=== PATIENT | female | born 1970 | race Caucasian/White ===

== ENCOUNTER 2016-12-27 17:08 | Emergency (ER) | payer OTHER ==
[~2016-12-27] VITALS: Ht 157.5 cm; Wt 59.0 kg
[~2016-12-27 17:08] MED LIST: PRED20TA PO; PROAIR HFA8.5 GM INH
[2016-12-27 17:41] VITALS: BP 127/63
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
[2016-12-27] MEDS ORDERED: IBUPROFEN 800 MG TABLET. PO ONE (18:30)
[2016-12-27] MEDS ORDERED: CYCLOBENZAPRINE 10 MG TABLET. PO ONE (18:30)
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
[2016-12-27] MEDS ORDERED: CYCL10TA2 PO (18:42)
== END 2016-12-27 18:55 | disposition home or self-care (01) ==
LOC: ER 17:08
DX: M54.5 Low back pain (principal); M54.6 Pain in thoracic spine; M54.2 Cervicalgia; V43.53XA Car driver injured in collision with pick-up truck in traffic accident, initial encounter; Y93.I9 Activity, other involving external motion; Y92.410 Unspecified street and highway as the place of occurrence of the external cause; Y99.8 Other external cause status
CPT/HCPCS: 70450; 72128; 99284-25

== ENCOUNTER 2017-02-18 19:40 | Emergency (ER) | payer SELFPAY ==
[~2017-02-18] VITALS: Ht 160 cm; Wt 61.2 kg
[~2017-02-18 19:40] MED LIST changes: +CYCL10TA2 PO
[2017-02-18 19:54] VITALS: BP 137/84
[2017-02-18] MEDS ORDERED: PRED20TA PO (20:11)
[2017-02-18] MEDS ORDERED: SULF1TAB24 PO (20:11)
--- NOTE | 2017-02-18 20:12 | PHYS DOC ---
Past Medical History Past Medical History: No Pertinent History Past Surgical History: Alcohol Use: None Drug Use: None Adult General Chief Complaint Chief Complaint: INSECT BITE [facility] HPI Patient is a 46 year old presents to emergency department with an area on her right lower back that is pink in color. It appears that she was bitten by some type of event intact. There is no drainage or discharge coming from the site. The area does not feel extremely warm. She believes that she was bit by a spider. Her tetanus immunization is up-to-date. Patient denies any fever, chills or any nausea vomiting. She states the area states salgado and itches. Review of Systems Review of Systems Constitutional: Denies fever or chills [] Eyes: Denies change in visual acuity, redness, or eye pain [] HENT: Denies nasal congestion or sore throat [] Respiratory: Denies cough or shortness of breath [] Cardiovascular: No additional information not addressed in HPI [] GI: Denies abdominal pain, nausea, vomiting, bloody stools or diarrhea [] : Denies dysuria or hematuria [] Musculoskeletal: Denies back pain or joint pain [] Integument: Denies rash or skin lesions. C/o area on right lower back that is irritated Neurologic: Denies headache, focal weakness or sensory changes [] Allergies Allergies Allergies Coded Allergies Type Severity Reaction Last Updated Verified No Known Drug Allergies 10/30/13 No Physical Exam Physical Exam Constitutional: Well developed, well nourished, no acute distress, non-toxic appearance. [] HENT: Normocephalic, atraumatic, bilateral external ears normal, oropharynx moist, no oral exudates, nose normal. [] Eyes: PERRLA, EOMI, conjunctiva normal, no discharge. [] Neck: Normal range of motion, no tenderness, supple, no stridor. [] Cardiovascular: Patient pink warm and dry Lungs & Thorax: no respiratory distress noted Skin: Warm, dry, no erythema, no rash. Area to the right lower back appears to have signs of a orange that is slightly pink with the middle area that appears to be slightly darker. No drainage or discharge coming from the site. The area does not appear to be any warmer than the rest of her skin. Back: No tenderness Extremities: No tenderness, no cyanosis, no clubbing, ROM intact, no edema. [] Neurologic: Alert and oriented X 3, normal motor function, normal sensory function, no focal deficits noted. [] Psychologic: Affect normal, judgement normal, mood normal. [] Current Patient Data Vital Signs Vital Signs Date Time Temp Pulse Resp B/P Pulse Ox O2 Delivery O2 Flow Rate FiO2 02/18/17 19:54 97.9 76 18 99 Room Air 97.9 EKG EKG [] Radiology/Procedures Radiology/Procedures [] Course & Med Decision Making Course & Med Decision Making Pertinent Labs and Imaging studies reviewed. (See chart for details) She was recommended to use Benadryl to help with the itching and irritation. She 'll be provided with steroids to help with inflammation. Patient will also be provided with Bactrim for ear infection in which she was instructed to start in the next few days if the area becomes increasingly redness or if any drainage or discharge coming from the site. At this time I believe that the area is a reaction from the bite as opposed to a infection. Patient agrees with treatment regimen at this time. Patient will be discharged home with signs and symptoms to return back to emergency department. Patient agrees with discharge instructions treatment regimens and follow-up recommendations. [] Dragon Disclaimer Dragon Disclaimer This electronic medical record was generated, in whole or in part, using a voice recognition dictation system. Departure Departure Impression: Primary Impression: Insect bite Disposition: 01 HOME, SELF-CARE Condition: STABLE Referrals: NO PCP (PCP) Patient Instructions: Insect Bite, [id number] Additional Instructions: Keep the area clean and dry. Clean the site with soap and water and apply antibiotic ointment to the area twice a day. Keep the area cool as well this will help decrease the irritation. You may also use Benadryl to help with the itching and irritation this medication will cause drowsiness do not take any be alert and oriented. You will be provided with a prescription for prednisone to help with inflammation. He'll also be provided with a prescription for Bactrim in which she may start in the next 2 days if the area becomes increasingly reddened or if drainage starts coming from the area. Follow-up to primary care physician in the next 3-5 days. Return back to emergency department sign symptoms of become worse. Scripts Prednisone 20 Mg [id number] Mg PO DAILY #10 TAB Prov:CHARLES HIGHTOWER TELEVISION AGENT 02/18/17 Sulfamethoxazole/Trimethoprim (Bactrim Ds Tablet)1 Each Tablet1 Tab PO BID #20 TAB Prov:CHARLES HIGHTOWER APRN 02/18/17 CHARLES HIGHTOWER APRN February 18, 2017 20:12
== END 2017-02-18 20:15 | disposition home or self-care (01) ==
LOC: ER 19:40
DX: S30.860A Insect bite (nonvenomous) of lower back and pelvis, initial encounter (principal); W57.XXXA Bitten or stung by nonvenomous insect and other nonvenomous arthropods, initial encounter; Y93.89 Activity, other specified; Y92.89 Other specified places as the place of occurrence of the external cause; Y99.8 Other external cause status
CPT/HCPCS: 99283

== ENCOUNTER 2017-08-14 14:23 | Emergency (ER) | payer SELFPAY ==
[~2017-08-14] VITALS: Ht 165.1 cm; Wt 68.9 kg
[~2017-08-14 14:23] MED LIST changes: +SULF1TAB24 PO
[2017-08-14 14:48] VITALS: BP 123/75
[2017-08-14] MEDS ORDERED: NAPROXEN 500 MG TABLET PO STA (14:57)
[2017-08-14] MEDS ORDERED: CYCLOBENZAPRINE 10 MG TABLET. PO ONE (15:00)
[2017-08-14] MEDS ORDERED: HYDROcodone/APAP 5/325MG 1 TAB TABLET PO ONE (15:00)
[2017-08-14 15:14] LABS: BILIRUBIN,URINE NEGATIVE (NEG); GLUCOSE,URINE NEGATIVE (NEG); NITRITE,URINE POSITIVE (NEG); PROTEIN,URINE NEGATIVE (NEG-TRACE)
--- NOTE | 2017-08-14 15:32 | PHYS DOC ---
Past Medical History Past Medical History: No Pertinent History Past Surgical History: , Tubal ligation Alcohol Use: None Drug Use: None Adult General Chief Complaint Chief Complaint: BACK PAIN - NO INJURY HPI HPI Patient is a 46 year old female who presents with mild to moderate left flank pain that began yesterday. Patient states the pain is sharp and worse on movement. Patient denies any urgency frequency or dysuria. Denies any hematuria. Denies any injury. Review of Systems Review of Systems Constitutional: Denies fever or chills [] Eyes: Denies change in visual acuity, redness, or eye pain [] HENT: Denies nasal congestion or sore throat [] Respiratory: Denies cough or shortness of breath [] Cardiovascular: No additional information not addressed in HPI [] GI: Denies abdominal pain, nausea, vomiting, bloody stools or diarrhea [] :. Denies dysuria or hematuria [] Musculoskeletal: Left flank pain Integument: Denies rash or skin lesions [] Neurologic: Denies headache, focal weakness or sensory changes [] Endocrine: Denies polyuria or polydipsia [] Current Medications Current Medications Current Medications Medications (Trade) Dose Ordered Sig/Christiane Start Time Stop Time Status Last Admin Dose Admin Acetaminophen/ Hydrocodone Bitart (Lortab 5/325) 2 tab 1X ONCE 08/14/17 15:00 08/14/17 15:01 DC 08/14/17 15:11 2 TAB Cyclobenzaprine HCl (Flexeril) 10 mg 1X ONCE 08/14/17 15:00 08/14/17 15:01 DC 08/14/17 15:11 10 MG Naproxen (Naprosyn) 500 mg 1X STAT 08/14/17 14:57 08/14/17 15:01 DC 08/14/17 15:11 500 MG Allergies Allergies Allergies Coded Allergies Type Severity Reaction Last Updated Verified No Known Drug Allergies 10/30/13 No Physical Exam Physical Exam Constitutional: Well developed, well nourished, no acute distress, non-toxic appearance. [] HENT: Normocephalic, atraumatic, bilateral external ears normal, oropharynx moist, no oral exudates, nose normal. [] Eyes: PERRLA, EOMI, conjunctiva normal, no discharge. [] Neck: Normal range of motion, no tenderness, supple, no stridor. [] Cardiovascular:Heart rate regular rhythm, no murmur [] Lungs & Thorax: Bilateral breath sounds clear to auscultation [] Abdomen: Bowel sounds normal, soft, no tenderness, no masses, no pulsatile masses. [] Skin: Warm, dry, no erythema, no rash. [] Back: Diffuse paraspinal muscle tenderness to the left flank region tenderness with CVA tendernes, Extremities: No tenderness, no cyanosis, no clubbing, ROM intact, no edema. [] Neurologic: Alert and oriented X 3, normal motor function, normal sensory function, no focal deficits noted. [] Psychologic: Affect normal, judgement normal, mood normal. [] Current Patient Data Vital Signs Vital Signs Date Time Temp Pulse Resp B/P (MAP) Pulse Ox O2 Delivery O2 Flow Rate FiO2 08/14/17 15:11 Room Air 08/14/17 14:48 98.1 74 18 99 98.1 Lab Values Laboratory Tests Test 08/14/17 15:00 08/14/17 15:04 Urine Collection Type Unknown Urine Color Yellow Urine Clarity Clear Urine pH 6.0 Urine Specific [place] >=1.030 Urine Protein Negative mg/dL (NEG-TRACE) Urine Glucose (UA) Negative mg/dL (NEG) Urine Ketones (Stick) Negative mg/dL (NEG) Urine Blood Negative (NEG) Urine Nitrite Positive (NEG) Urine Bilirubin Negative (NEG) Urine Urobilinogen Dipstick 1.0 mg/dL (0.2 mg/dL) Urine Leukocyte Esterase Negative (NEG) Urine RBC 0 /HPF (0-2) Urine WBC 1-4 /HPF (0-4) Urine Squamous Epithelial Cells Mod /LPF Urine Bacteria Many /HPF (0-FEW) Urine Mucus Marked /LPF POC Urine HCG, Qualitative Hcg negative (Negative) EKG EKG [] Radiology/Procedures Radiology/Procedures [] Course & Med Decision Making Course & Med Decision Making Pertinent Labs and Imaging studies reviewed. (See chart for details) Patient is in the ED with left flank pain, no known injury. Urine positive for nitrites. Patient was discharged on Cipro. Instructed to push fluids. Follow-up with PCP in 1-2 weeks. Dragon Disclaimer Dragon Disclaimer This electronic medical record was generated, in whole or in part, using a voice recognition dictation system. Departure Departure Impression: Primary Impression: UTI (urinary tract infection) Disposition: HOME, SELF-CARE Condition: STABLE Referrals: NO PCP (PCP) follow up in one week Patient Instructions: Urinary Tract Infection Additional Instructions: You have a urinary tract infection. Take the prescribed antibiotics until completed. Follow up with a doctor from the list provided in one week. Push fluids. Scripts Tramadol Hcl (ULTRAM) 50 Mg Tablet 1 TAB PO Q6HRS, #30 TAB Prov: ERIK ALLISON APRN 08/14/17 Ciprofloxacin Hcl (CIPRO) 500 Mg Tablet 1 TAB PO BID, #14 TAB Prov: ERIK ALLISON APRN 08/14/17 Problem Qualifiers Primary Impression: UTI (urinary tract infection) Urinary tract infection type: acute cystitis Hematuria presence: without hematuria Qualified Codes: N30.00 - Acute cystitis without hematuria ERIK ALLISON APRN Aug 14, 2017 15:32
[2017-08-14 15:33] LABS: BACTERIA,URINE MANY /HPF (0-FEW); RBC,URINE 0 /HPF (0-2); SQUAMOUS EPITHELIAL CELL,UR MOD /LPF
[2017-08-14] MEDS ORDERED: CIPR500T94 PO (15:46)
[2017-08-14] MEDS ORDERED: TRAM-48 PO (15:46)
== END 2017-08-14 15:30 | disposition home or self-care (01) ==
LOC: ER 14:23
DX: N30.00 Acute cystitis without hematuria (principal)
CPT/HCPCS: 81001; 81025; 99284

== ENCOUNTER 2018-01-27 19:36 | Emergency (ER) | payer SELFPAY | END 2018-01-27 21:13 | disposition home or self-care (01) | LOC: ER 19:36 | DX: J40 Bronchitis, not specified as acute or chronic (principal); Z98.51 Tubal ligation status | CPT/HCPCS: 99283 ==